=== PATIENT | male | born 1960 | race Caucasian/White ===

== ENCOUNTER → 2017-10-28 14:30 | Outpatient (CLI) | payer OTHER, SELFPAY ==
--- NOTE | 2017-10-28 | DI.US.S_ITS ---
PROCEDURE: US CAROTID DOPPLER BI INDICATIONS: TIA TECHNIQUE: Color and pulse Doppler interrogation was performed of both carotid systems, with image documentation and velocity measurements. COMPARISON: None. FINDINGS: Stenosis calculations are based on SRU (Society of Radiologists in Ultrasound) criteria. Right side: Brachial blood pressure: 127 over mm Hg. Common carotid artery peak systolic velocity: 105 cm/sec. Internal carotid artery peak systolic velocity: 87 cm/sec. Internal carotid artery end diastolic velocity: 37 cm/sec. External carotid artery peak systolic velocity: 76 cm/sec. ICA/CCA peak systolic ratio: 20. Young scale imaging description: Normal appearance. Percent internal carotid artery stenosis: No carotid stenosis. Vertebral artery: Flow direction is antegrade. Left side: Brachial blood pressure: 125/79 Hg. Common carotid artery peak systolic velocity: 99 cm/sec. Internal carotid artery peak systolic velocity: 74 cm/sec. Internal carotid artery end diastolic velocity: 39 cm/sec. External carotid artery peak systolic velocity: 87 cm/sec. ICA/CCA peak systolic ratio: 0.7. Young scale imaging description: Minimal plaque Percent internal carotid artery stenosis: Less than 50%. Vertebral artery: Flow direction is antegrade. IMPRESSION: No right carotid stenosis and less than 50% left internal carotid stenosis. Dictated by: Copma Ly LOCATED [facility]IN [facility] Interpreted: Jose Phillips MD on 10/28/2017 at 15:32 Approved by: Jose Phillips M.D. on 10/29/2017 at 10:41
== END ==
PROVIDERS: Visit Provider Family Medicine
DX: G45.9 Transient cerebral ischemic attack, unspecified (principal)
CPT/HCPCS: 93880

== ENCOUNTER 2017-12-21 09:39 | Emergency (ER) | payer OTHER, SELFPAY ==
[2017-12-21 10:00] VITALS: BP 162/105; PULSE 83; RESP 18; TEMP 36.8; O2SAT 100
--- NOTE | 2017-12-21 10:40 | ED.BACK ---
HPI - Back Pain/Injury General Chief Complaint: Extremity Injury, Lower Stated Complaint: LOWER BACK,, LEFT LEG PAIN Time Seen by Provider: 12/21/17 10:21 Source: patient Mode of arrival: ambulatory Limitations: no limitations History of Present Illness HPI Narrative: Patient has been having ongoing back pain for the last 10 days mostly on the left side. He has numbness and tingling down his left all leg. He states yesterday was the worst. He says 10 days ago he jumped out of bed wrong and has progressively gotten worse. He has been less active than normal but still getting up and walking around. He does spend time icing it at a computer but he does not sit long see says his legs go to sleep. He did pretty heating pad on it all last evening. The overall he says he is feeling better but still has discomfort. His he did take some pain medication yesterday which did seem to help. He denies any urine or stool incontinence MD Complaint: back pain Related Data Home Medications Medication Instructions Recorded Confirmed aspirin 81 mg PO QDAY #0 03/04/12 Previous Rx's Medication Instructions Recorded prednisone 20 mg PO DAILY #5 tab 12/21/17 Allergies Allergy/AdvReac Type Severity Reaction Status Date / Time No Known Allergies Allergy Uncoded 08/04/17 12:54 Review of Systems Review of Systems All systems reviewed & are unremarkable except as noted in HPI and below Constitutional Denies chills, Denies fever(s), Denies lethargy and Denies weakness Cardiovascular Denies chest pain, Denies irregular heart rhythm, Denies lightheadedness, Denies palpitations, Denies dyspnea, Denies dyspnea on exertion and Denies orthopnea Respiratory Denies cough, Denies dyspnea, Denies dyspnea on exertion and Denies wheezing Gastrointestinal Gastrointestinal: Denies abdominal pain, Denies change in bowel habits, Denies diarrhea, Denies nausea and Denies vomiting Musculoskeletal Reports system reviewed and no additional complaints, except as docu and Reports as per HPI Neurologic Denies weakness Endocrine Denies palpitations Allergic/Immunologic Denies wheezing PFSH Medical History CVA (cerebral vascular accident) (Acute) Social History Smoking Status: Current every day smoker Exam Initial Vital Signs Initial Vital Signs: Vital Signs Temperature 98.3 F 12/21/17 10:00 Pulse Rate 83 12/21/17 10:00 Respiratory Rate 18 12/21/17 10:00 Blood Pressure 162/105 H 12/21/17 10:00 Pulse Oximetry 100 12/21/17 10:00 Const General: cooperative and well developed Nutritional Appearance: well nourished Orientation: alert, awake, oriented x3 and not confused Neck Neck: normal visual inspection and full ROM Chest Chest: normal inspection of the chest Resp Effort & Inspection: normal respiratory effort and able to speak in complete sentences Cardio Pulses: normal peripheral pulses Back/Spine/Pelvis Back: normal to inspection Thoracic/Lumbar Spine: thoraco-lumbar spasm (The pain as left lateral lumbar area no vertebral tenderness no step-off) Skin General: no rashes or lesions noted, No jaundice and No petechiae Course Vital Signs - 8 hr 12/21/17 10:00 12/21/17 11:01 Temperature 98.3 F Pulse Rate 83 76 Respiratory Rate 18 13 Blood Pressure 162/105 H 186/96 H Pulse Oximetry 100 MDM - Back Pain/Injury MDM Narrative Medical decision making narrative: Patient had signs and symptoms consistent with sciatic pain. He is offered a shot of Toradol which she does not want. He really wanted information all the. It he is overall feeling better today. I recommend physical therapy and may be a short course of prednisone which he is willing to try. Discharge Plan Departure Patient Disposition: Home Clinical Impression: Sciatic leg pain Discharge Date/Time: 12/21/17 11:02 Interventions: ED Discharge Assessment Last Done: 12/21/17 11:01 Instructions: DI for Back Pain With Sciatica Activity Restrictions/Additional Instructions: *You have been diagnosed with back pain with sciatic *What to do: Increase activity as tolerated, no heavy lifting more than 10-15 lb, no sitting for prolonged periods of time, may require physical therapy. Try heating pad, and stretches *Continue to take medications as directed -prednisone 20 mg once a day for 5 days-faxed to [facility] in [place] -Tylenol 500-650 mg every 4 hr or 1000 mg every 6 hr *Follow up with your primary care provider in 2-3 days *Return to ER if you should have a loss of urine or bowel, worsening pain, leg weakness or any new, worsening or concerning symptoms Prescriptions: New prednisone 20 mg tablet 20 mg PO DAILY Qty: 5 RF: 0 No Action aspirin 81 MG tablet,delayed release (DR/EC) 81 mg PO QDAY Qty: 0 RF: 0
[2017-12-21 11:01] VITALS: BP 186/96; PULSE 76; RESP 13
== END 2017-12-21 11:02 | disposition home or self-care (01) ==
PROVIDERS: Emergency Provider Emergency Medicine; PCP Family Medicine
DX: M54.30 Sciatica, unspecified side (principal)
CPT/HCPCS: 99282

== ENCOUNTER 2020-05-28 18:54 | Emergency (ER) | payer OTHER, SELFPAY ==
[2020-05-28 18:58] VITALS: BP 177/99; PULSE 85; RESP 22; TEMP 36.6; O2SAT 98
--- NOTE | 2020-05-28 19:44 | PC.NURSE ---
Pt reports waking up this morning and noticed muscles on the right side of my face weren't working Unable to fully close right eye, denies numbness on right side of face. Speech clear. Tongue doesn't deviate to right side.
--- NOTE | 2020-05-28 19:57 | ED_ITS ---
HPI - Neuro Symptoms/Deficit General Chief Complaint: Neuro Symptoms/Deficit Stated Complaint: RIGHT SIDE OF FACE NUMBENESS EAR CRACKLING Time Seen by Provider: 05/28/20 19:42 Source: patient and family Mode of arrival: Ambulatory History of Present Illness HPI Narrative: Patient here with his ex-. Complains of right facial droop. Sparing the right forehead. Awoke 9:00 a.m. this morning with symptoms. Went to bed midnight last night with crackling sensation is right ear with changes sensation to the entire tongue. At 11:00 a.m. today progressively worsened symptoms with the face. Noticed drooping of the eyelid and drooping of the right side of the mouth. Denies denies any confusion altered mental status slurred speech or limb numbness tingling or weakness. No recent illness. No prior history of Green's palsy. History of TIA 6 years ago and is on baby aspirin and cholesterol medication daily. That episode had expressive aphasia. Has resolved. 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 Occasionally causes double vision On Anticoagulants: No Related Data Home Medications Medication Instructions Recorded Confirmed aspirin 81 mg PO QDAY #0 03/04/12 Previous Rx's Medication Instructions Recorded prednisone 20 mg PO DAILY #5 tab 12/21/17 prednisone 10 mg PO DAILY #45 tab 05/28/20 valacyclovir 1,000 mg PO TID #21 tab 05/28/20 Allergies Allergy/AdvReac Type Severity Reaction Status Date / Time No Known Allergies Allergy Uncoded 08/04/17 12:54 Review of Systems Review of Systems Narrative: GENERAL: Denies chills, fatigue, malaise, fever, sweats. HEENT: Denies sinus pain, ear pain, sore throat, difficulty swallowing RESPIRATORY: Denies dyspnea, cough CARDIOVASCULAR: Denies chest pain, palpitations, edema, GASTROINTESTINAL: Denies nausea, vomiting, abdominal pain, diarrhea, constipation, melena. : Denies dysuria, frequency, hematuria MUSCULOSKELETAL: denies muscle or bony pain SKIN: Denies rash, skin lesions NEUROLOGIC: Denies headache, complains weakness and numbness, denies change in speech, confusion ROS Unobtainable: All systems reviewed & are unremarkable except as noted in HPI and below Hematologic/Lymphatic On Anticoagulants: No Patient History Medical History CVA (cerebral vascular accident) Social History Smoking Status: Current every day smoker Smoking Status: Current every day smoker alcohol intake frequency: holidays/special occasions only Substance Use Type: does not use Exam Narrative Exam Narrative: GENERAL: patient appears stated age. Well-nourished, well- developed patient, in no distress, not toxic not dyspneic HEAD: Normocephalic. EYES: Pupils equal round and reactive. No scleral icterus. No injection no discharge ENT: Mucous membranes moist. No drooling no tongue elevation no trismus no malocclusion, right TM is clear. No lesions NECK: Trachea midline. Non tender CARDIOVASCULAR: Regular rate and rhythm without murmurs, gallops, or rubs. RESPIRATORY: Clear to auscultation. Breath sounds equal bilaterally. No wheezes, rales, or rhonchi. GASTROINTESTINAL: Abdomen soft, non-tender, nondistended. EXTREMITIES: No gross deformities. BACK: Nontender without deformity or crepitance. No flank tenderness. NEURO: AOx4. Clear speech, right facial droop with sparing of the right forehead. Weakness to the right eyelid on closure. And against resistance. No tongue deviation. Steady self gait no ataxia strong equal director of food and nutrition. Negative pronator drift. Steady Romberg. [id number]-[id number] intact bilaterally SKIN: Warm and dry PSYCH: Not anxious, is cooperative Initial Vital Signs Initial Vital Signs: Vital Signs Temperature 97.9 F 05/28/20 18:58 Pulse Rate 85 05/28/20 18:58 Respiratory Rate 22 05/28/20 18:58 Blood Pressure 177/99 H 05/28/20 18:58 Pulse Oximetry 98 05/28/20 18:58 Scores NIH Stroke Scale Level of Conciousness: Alert, keenly responsive Ask month/age: Answers both questions correctly. Open/close eyes, close hand: Performs both tasks correctly Best gaze horizontal: Normal Visual gonzales: No visual loss Facial palsy: Partial paralysis, total or near total paralysis of lower face Left arm drift: No drift for full 10 sec Right arm drift: No drift for full 10 sec Left leg drift: No drift for full 5 sec Right leg drift: No drift for full 5 sec Limb ataxia: Absent Sensory on face/arms/legs: Normal, no sensory loss Best language: No aphasia, normal Dysarthria: Normal Extinction or inattention: No abnormality Total NIH Stroke scale score: 2 Course Course Course Narrative: No new issues during course of stay Orders Ordered: ED Orders 05/28/20 19:55 CT angio head and neck Stat CT head/brain wo con Stat EKG-12 Lead Stat 05/28/20 20:20 Complete Blood Count AUTO DIFF Stat Comprehensive Metabolic Panel Stat Discontinued Medications Sodium Chloride (Normal Saline 0.9%) 500 mls @ 1,000 mls/hr IV BOLUS ONE Stop: 05/28/20 20:24 Last Infusion: 05/28/20 22:14 Dose: 0 mls/hr Documented by: Admin: 05/28/20 21:13 Dose: 1,000 mls/hr Documented by: MARY Prednisone (Prednisone 20 Mg Tablet) 60 mg PO NOW ONE Stop: 05/28/20 22:43 Last Admin: 05/28/20 22:50 Dose: 60 mg Documented by: MARY Reevaluation(s) Reevaluation #1: Reviewed results with patient. Agrees with treatment plan. Agrees with follow-up. Treatment for Green's palsy Time: 22:10 Consultations Consultation #1: Spoke with stroke team/[facility], Dr. Alis Torres, at this time agrees clinically is likely Green's palsy was slow evolution of symptoms and she states not uncommon for slow progression of all the features of Green's palsy. Right forehead may have deficits in the next 12 hours. May start prednisone dosing. 60 mg daily for 5 days and then taper 10 mg at a time daily. May start valacyclovir as well Time: 22:27 Vital Signs Vital signs: Vital Signs - 8 hr 05/28/20 18:58 05/28/20 23:05 Temperature 97.9 F Pulse Rate 85 72 Respiratory Rate 22 15 Blood Pressure 177/99 H 155/92 H Pulse Oximetry 98 99 MDM - Neuro Symptoms/Deficit Differential Diagnosis Differential diagnosis: Likely cerebrovascular accident, transient cerebral ischemia and other (Green's palsy) Lab Data Attestation: I reviewed the patient's lab results. Result diagrams: 05/28/20 20:20 05/28/20 20:20 Labs: Lab Results 05/28/20 05/28/20 Range/Units 20:20 20:20 WBC 10.6 (4.5-11.0) X10^3/uL RBC 5.05 (4.5-5.9) X10^6/uL Hgb 15.0 (13.5-17.5) g/dL Hct 43.6 (41-53) % MCV 86.3 (80-100) fL MCH 29.7 (26-34) PG MCHC 34.5 (30-36) % RDW 13.2 (11.6-14.8) % Plt Count 265 (150-400) X10^3/uL Neut % (Auto) 59.3 (50-75) % Lymph % (Auto) 30.5 (25-40) % [place] % (Auto) 8.0 (3-14) % Eos % (Auto) 1.3 L (2-4) % Baso % (Auto) 0.9 (0-2) % Neut # (Auto) 6300 (7098-9340) /uL Lymph # (Auto) 3200 (1493-2007) /uL [place] # (Auto) 900 (0-900) /uL Eos # (Auto) 100 (0-450) /uL Baso # (Auto) 100 (0-100) /uL Sodium 138 (137-145) mmol/L Potassium 4.1 (3.4-5.1) mmol/L Chloride 102 (98-107) mmol/L Carbon Dioxide 28 (22-32) mmol/L BUN 16 (9-20) mg/dL Creatinine 0.82 (0.66-1.25) mg/dL Estimated GFR > 60.0 (>60) mL/min BUN/Creatinine Ratio 19.5 (6-22) Glucose 151 H (80-110) mg/dL Calcium 10.0 (8.4-10.2) mg/dL Total Bilirubin 0.7 (0.2-1.3) mg/dL AST 46 (17-59) IU/L ALT 63 H (<50) IU/L Alkaline Phosphatase 115 (38-126) U/L Total Protein 8.5 H (6.3-8.2) g/dL Albumin 4.9 (3.5-5.0) g/dL Globulin 3.6 (1.7-4.1) g/dL Albumin/Globulin Ratio 1.4 (1.0-2.8) Imaging Data CT scan - head: Radiologist's Impression: [address] [id number] Scan ReportSigned Patient: Paulo Taylor EMR#: [id number]: [id number]:[id number]/Sex: 59 / MDate of Service: 05/28/20Loc: EDAccession Number: [id number] Procedure: CT head/brain wo con Ordering Provider: Marlo Benson MD PROCEDURE: CT HEAD/BRAIN WO CON INDICATIONS: Right facial droop TECHNIQUE: Noncontrast 4.5 mm thick angled axial sections acquired from the foramen magnum to the vertex, with coronal and sagittal reformats. For radiation dose reduction, the following was used: automated exposure control, adjustment of mA and/or kV according to patient size. COMPARISON: [facility], CT, HEAD WITHOUT CONTRAST, 04/06/2014, 14:46. FINDINGS: Image quality: Excellent. CSF spaces: Basal cisterns are patent. No extra-axial fluid collections. Ventricles are normal in size and shape. Brain: No midline shift. No intracranial masses or hemorrhage. Young-white matter interface is normal. Skull and face: Calvarium and visualized facial bones are intact, without suspicious lesions. Sinuses: Visualized sinuses and mastoids are clear. IMPRESSION: 1. No acute intracranial process. Dictated by: Moraima Page M.D. on 05/28/2020 at 21:20 Approved by: Moraima Page M.D. on 05/28/2020 at 21:21 CTA - brain/neck: Radiologist's Impression: [address] [id number] Scan ReportSigned Patient: Paulo Taylor EMR#: [id number]: [id number]:[id number]/Sex: 59 / MDate of Service: 05/28/20Loc: EDAccession Number: [id number] Procedure: CT angio head and neck Ordering Provider: Marlo Benson MD PROCEDURE: CT ANGIO HEAD AND NECK INDICATIONS: Right facial droop TECHNIQUE: After the administration of intravenous contrast, 1 mm thick sections acquired from the aortic arch through the [place] of [place]. Post-contrast 4.5 mm thick sections then re-acquired from the foramen magnum to the vertex. 3-dimensional kywdyil-ifcdywgmq-wjnlyauvdd (MIP) and/or volume rendering reformats were acquired of the central intracranial vasculature and neck separately. COMPARISON: [facility], CT, CT HEAD/BRAIN WO CON, 05/28/2020, 20:46. [facility], US, US CAROTID DOPPLER BI, 10/28/2017, 14:55. [facility], CT, HEAD WITHOUT CONTRAST, 04/06/2014, 14:46. FINDINGS: Image quality: Excellent. BRAIN: CSF spaces: Ventricles are normal in size and shape. Basal cisterns are patent. No extra-axial fluid collections. Brain: No midline shift. No intracranial bleeds or masses. Young-white matter interface appears intact. Skull and face: Calvarium and facial bones appear intact, without suspicious lesions. Orbits appear normal. 24 mm focus of fat containing mass within the right face posterior to the mandible most suggestive of lipoma. Sinuses: Sinuses and mastoids are clear. HEAD CT ANGIOGRAPHY: Anterior circulation: Intracranial internal carotid arteries are normal in size and flow. The flow within the paired anterior cerebral arteries is normal and symmetric. The flow within the middle cerebral arteries is normal and symmetric. The anterior communicating artery is seen. No aneurysms are seen. Posterior circulation: The posterior circulation demonstrates a left vertebral artery dominance. Basilar artery and posterior cerebral arteries demonstrate no areas of hemodynamically significant stenosis, vascular occlusion or aneurysmal dilation. Posterior communicating arteries are within normal limits. NECK CT ANGIOGRAPHY: The origins of the left and right common, internal and external carotid arteries demonstrate no areas of hemodynamically significant stenosis, vascular occlusion or aneurysmal dilation. Origins of the left and right vertebral arteries d emonstrate no areas of hemodynamically significant stenosis, vascular occlusion or aneurysmal dilation. Aortic arch demonstrates conventional anatomy. Limited, visualized portions of the subclavian vasculature are unremarkable. IMPRESSION: 1. No acute intracranial process. 2. No areas of hemodynamically significant stenosis, vascular occlusion or aneurysmal dilation within the anterior or posterior circulation. 3. No areas of hemodynamically significant stenosis, vascular occlusion or aneurysmal dilation within the neck vasculature. Any quantitative measurements of stenosis were performed using NASCET criteria. Dictated by: Moraima Page M.D. on 05/28/2020 at 21:47 Approved by: Moraima Page M.D. on 05/28/2020 at 21:51 ECG Data Attestation: I personally reviewed and interpreted this ECG as follows: Interpretation: Normal sinus rhythm rate [address] elevation or depression MDM Narrative Medical decision making narrative: Appropriate for discharge home. Clinically Green's palsy. Reviewed with stroke team. Agrees with treatment plan and diagnosis. Progression of Green's palsy with symptoms may take 24-36 hours Discharge Plan Departure Patient Disposition: Home Clinical Impression: Facial paralysis/[place] palsy Instructions: DI for [place] Palsy Activity Restrictions/Additional Instructions: See family doctor this week for recheck. Be sure to keep right eye closed to prevent drying out at bedtime. Prescriptions have been sent to your pharmacy. Prescriptions: New prednisone 10 mg tablet 10 mg PO DAILY Qty: 45 RF: 0 valacyclovir 1 gram tablet 1,000 mg PO TID Qty: 21 RF: 0 No Action aspirin 81 MG tablet,delayed release (DR/EC) 81 mg PO QDAY Qty: 0 RF: 0 prednisone 20 mg tablet 20 mg PO DAILY Qty: 5 RF: 0 Referrals: Jackson Mars MD [Primary Care Provider] -
[2020-05-28 20:35] LABS: Add Manual Diff / Slide Review NO; Basophils Absolute Auto 100 /uL (0-100); Basophils Percent Auto 0.9 % (0-2); Eosinophils Absolute Auto 100 /uL (0-450); Eosinophils Percent Auto 1.3 % (2-4); Hematocrit 43.6 % (41-53); Lymphocytes Absolute Auto 3200 /uL (1100-4500); Lymphocytes Percent Auto 30.5 % (25-40); Mean Corpuscular HGB Conc 34.5 % (30-36); Mean Corpuscular Hemoglobin 29.7 PG (26-34); Mean Corpuscular Volume 86.3 fL (80-100); Monocytes Absolute Auto 900 /uL (0-900); Neutrophils Absolute Auto 6300 /uL (1500-7000); Neutrophils Percent Auto 59.3 % (50-75); Red Blood Cell Count 5.05 X10^6/uL (4.5-5.9); Red Cell Distribution Width 13.2 % (11.6-14.8); White Blood Cell Count 10.6 X10^3/uL (4.5-11.0)
[2020-05-28 20:45] LABS: Alanine Aminotransferase 63 IU/L (<50); Albumin 4.9 g/dL (3.5-5.0); Albumin Globulin Ratio 1.4 (1.0-2.8); Alkaline Phosphatase 115 U/L (38-126); Aspartate Aminotransferase 46 IU/L (17-59); BUN Creatinine Ratio 19.5 (6-22); Bilirubin Total 0.7 mg/dL (0.2-1.3); Blood Urea Nitrogen 16 mg/dL (9-20); Carbon Dioxide 28 mmol/L (22-32); Chloride 102 mmol/L (98-107); Estimated Glomerular Filt Rate > 60.0 mL/min (>60); Globulin 3.6 g/dL (1.7-4.1); Glucose 151 mg/dL (80-110); Potassium 4.1 mmol/L (3.4-5.1); Sodium 138 mmol/L (137-145); Total Protein 8.5 g/dL (6.3-8.2)
[2020-05-28 20:46] LABS: HEMOLYSIS 68 (0-50)
[2020-05-28 20:56] LABS: Platelet Count 265 X10^3/uL (150-400)
[2020-05-28] MEDS: SODIUM CHLORIDE 0.9% 500 ML 1000 ML IV (21:13)
[2020-05-28] MEDS: predniSONE 20 MG TABLET 60 MG PO (22:50)
[2020-05-28 23:05] VITALS: BP 155/92; PULSE 72; RESP 15; O2SAT 99
== END 2020-05-28 23:06 | disposition home or self-care (01) ==
PROVIDERS: Emergency Provider Emergency Medicine; PCP Family Medicine
DX: G51.0 Bell's palsy (principal); R07.9 Chest pain, unspecified; Z86.73 Personal history of transient ischemic attack (TIA), and cerebral infarction without residual deficits; Z79.82 Long term (current) use of aspirin
CPT/HCPCS: 36415; 70450; 70496; 70498; 80053; 85025; 93005; 96360; 99284

== ENCOUNTER 2021-10-05 20:57 | Emergency (ER) | payer OTHER, SELFPAY ==
[2021-10-05 21:06] VITALS: BP 139/92; PULSE 117; RESP 15; TEMP 38.4; O2SAT 97; BMI 33.5
[2021-10-05 21:32] LABS: COVID19 -Nasal RAPID POSITIVE (Negative)
--- NOTE | 2021-10-05 21:57 | PC.NURSE ---
called to bring to room, no answer, no one in waiting room
--- NOTE | 2021-10-05 23:31 | PC.NURSE ---
pt called to the back and stated he was going to leave as it was cold in the waiting room, explained to pt that he was called for a room earlier and did not answer told pt would see about getting him a room, pt stated ok, then about 5 min later he told security that he was leaving as it was too cold in the waiting room
== END 2021-10-06 00:02 | disposition left against medical advice (07) ==
PROVIDERS: Emergency Provider Emergency Medicine; PCP Family Medicine
DX: U07.1 COVID-19 (principal)
CPT/HCPCS: 87635; 99281; C9803